=== PATIENT | female | born 1965 | race Caucasian/White ===

== ENCOUNTER 2020-09-05 12:06 | Emergency (ER) | payer OTHER ==
[2020-09-05 12:16] VITALS: TEMP 97.6; BMI 27.6
[2020-09-05 14:07] LABS: BASO % 0.4 % (0-2.0); EOS % 1.7 % (0-4.5); HEMATOCRIT 41.6 % (32.4-45.2); HEMOGLOBIN 13.5 GM/dL (10.7-15.3); MCH 30.7 pg (25.7-33.7); MCHC 32.5 g/dl (32.0-36.0); MEAN CELL VOLUME 94.5 fl (80-96); MEAN PLT VOLUME 8.1 fl (7.5-11.1); MONO % 9.6 % (3.8-10.2); NEUT % 60.3 % (42.8-82.8); PLATELET COUNT 205 10^3/uL (134-434); RBC 4.41 M/mm3 (3.60-5.2); RDW 13.6 % (11.6-15.6); WHITE BLOOD COUNT 5.4 K/mm3 (4.0-10.0)
[2020-09-05 14:22] LABS: INR 1.02 (0.83-1.09); PROTHROMBIN TIME (PATIENT) 12.5 SEC (9.7-13.0)
[2020-09-05 14:25] LABS: ACTIVATED PTT 34.2 SECONDS (25.2-36.5)
[2020-09-05 14:32] LABS: CHLORIDE 108 mmol/L (98-107); SODIUM 140 mmol/L (136-145)
[2020-09-05 14:34] LABS: CALCIUM 8.6 mg/dL (8.5-10.1)
[2020-09-05 14:35] LABS: ALBUMIN 3.9 g/dl (3.4-5.0); ANION GAP 5 MMOL/L (8-16); CO2 27 mmol/L (21-32); GLUCOSE,RANDOM 89 mg/dL (74-106)
[2020-09-05 14:38] LABS: CREATININE 0.5 mg/dL (0.55-1.3); SGOT/AST 21 U/L (15-37); SGPT/ALT 22 U/L (13-61)
[2020-09-05 14:39] LABS: BILIRUBIN,TOTAL 0.4 mg/dL (0.2-1); TOT PROT 7.2 g/dl (6.4-8.2)
[2020-09-05 14:41] LABS: ALK PHOS 132 U/L (45-117)
[2020-09-05 14:46] LABS: BLOOD UREA NITROGEN 17.7 mg/dL (7-18)
[2020-09-05] MEDS ORDERED: MAG HYDROX/AL HYDROX/SIMETH 30 ML UNIT-DOSE CUP PO ONE (15:06)
[2020-09-05] MEDS ORDERED: MAG HYDROX/AL HYDROX/SIMETH 30 ML UNIT-DOSE CUP ONE (15:26)
[2020-09-05 16:21] VITALS: BP 140/82; PULSE 68
== END 2020-09-05 16:44 | disposition home or self-care (01) ==
LOC: JER 12:06
DX: R07.9 Chest pain, unspecified (principal)
CPT/HCPCS: 36415; 71046-TC-FY; 80053; 83880; 84484; 85025; 85610; 85730; 93005; 93010; 99285-25